=== PATIENT | female | born 1985 | race Caucasian/White ===

== ENCOUNTER 2018-05-09 13:11 | Emergency (ER) | payer OTHER, SELFPAY ==
[2018-05-09 13:38] LABS: Bilirubin Negative (Negative); Blood, Urine Large (Negative); Clarity CLOUDY (Clear); Glucose, Urine (Dipstick) Negative (Negative); Leukocyte Small (Negative); Nitrite Negative (Negative); Protein, Urine (Dipstick) Trace mg/dL (Neg-Trace); Specific Gravity, Urine 1.027 (1.002-1.036); Urobilinogen 0.2 mg/dL (0.2-1.0); pH, Urine 5.5 (5.0-9.0)
[2018-05-09 13:39] LABS: Bacteria/HPF None Seen HPF (None Seen); Hyaline Casts/LPF 4-6 HYALINE CAST LPF (0-3 Hyaline); Pathc Cast-AUWi Flag 0.76 (0-2.49); RBC/HPF GREATER THAN 50-TNTC HPF (0-3)
[2018-05-09] MEDS ORDERED: Morphine 2 MG/ML SYRINGE ONE (13:49)
[2018-05-09] MEDS ORDERED: Morphine 4 MG/ML VIAL ONE (13:49)
[2018-05-09] MEDS ORDERED: Ondansetron HCl/PF 4 MG/2 ML Vial ONE (13:49)
[2018-05-09 14:16] LABS: #Basophils 0.1 thou/uL (0.0-0.2); #Eosinphils 0.1 thou/uL (0.0-0.7); #Lymphocytes 3.1 thou/uL (1.20-3.40); #Monocytes 0.6 thou/uL (0.11-0.59); #Neutrophils 5.4 thou/uL (1.40-6.50); %Basophils 0.6 % (0.0-1.0); %Eosinophils 1.5 % (0.0-10.0); %Lymphocytes 33.7 % (21.0-51.0); %Monocytes 6.1 % (0.0-10.0); %Neutrophils 58.1 % (42.0-75.0); Hemoglobin 13.7 g/dL (12.0-16.0); Mean Corpuscular HGB CONC 32.3 g/dL (32.0-36.0); Mean Corpuscular Volume 86.6 fL (78.0-98.0); Mean Platelet Volume 8.4 fL (7.4-10.4); Platelet Count 290 thou/uL (130-400); RBC Distribution Width 12.5 % (11.5-14.5); Red Blood Cell (RBC) Count 4.91 mill/uL (4.20-5.40); White Blood Cell (WBC) Count 9.3 thou/uL (4.8-10.8)
--- NOTE | 2018-05-09 15:18 | ULT ---
PELVIC ULTRASOUND WITH DOPPLER: HISTORY: Left lower quadrant pain. Possible . Abdominal cramping. TECHNIQUE: Transabdominal, transvaginal, talbot-scale, color-flow, and spectral Doppler. FINDINGS: The uterus measures 9.4 x 5.6 x 6.6 cm without focal mass or endometrial fluid. The endometrium ariadna ures 9 mm in thickness. No intrauterine gestational sac is seen. No products of conception are iden tified in the endometrial canal. The right ovary measures 4.2 x 2.2 x 2.4 cm, and the left ovary measures 3.5 x 2.8 x 2.3 cm. Flow is demonstrated to both ovaries. No adnexal mass or free fluid in the cul-de-sac is seen. IMPRESSION: Normal examination. Correlation with serial beta hCGs and follow-up ultrasound would be helpful. POS: [facility]
[2018-05-09] MEDS ORDERED: Ketorolac Tromethamine 30 MG/ML VIAL ONE (16:53)
[2018-05-09] MEDS ORDERED: cefTRIAXone\\ROCEPHIN 500 MG VIAL ONE (18:06)
--- NOTE | 2018-05-09 18:29 | CT ---
CT ABDOMEN NONCONTRAST CT PELVIS NONCONTRAST: (urolithiasis protocol) DATE: 05/09/18 HISTORY: 32-year-old female with left flank pain and pelvic pain. COMPARISON: 10/02/10. TECHNIQUE: IV injection of iodinated contrast media: none Oral contrast media: none FINDINGS: Other than for urolithiasis, the lack of IV and oral contrast limits the evaluation. There has been cholecystectomy since the previous CT. There is a tampon within the vaginal cavity on the current study. No other interval change is detected compared to the previous CT (previous report mentions splenomega ly, but is actually no splenomegaly). There are no renal, ureteral, or bladder calculi. The appendix is normal. No ascites or pneumoperiton eum. No hydronephrosis. No small bowel dilation. No colonic diverticulitis. Within the limitations of a noncontrast scan, no abnormality identified involving bilateral kidneys, abdominal aorta, adrenals , pancreas, liver, or spleen. The urinary bladder is decompressed. IMPRESSION: 1. No urolithiasis or obstructive uropathy. 2. Status post cholecystectomy. JORGE Perez POS: [facility]
[2018-05-11 22:10] LABS: Chlamydia by PCR Not Detected (NotDetected); GC by PCR Not Detected (NotDetected)
== END 2018-05-09 18:50 | disposition home or self-care (01) ==
LOC: ERS 13:11
DX: N39.0 Urinary tract infection, site not specified (principal); D64.9 Anemia, unspecified; F17.210 Nicotine dependence, cigarettes, uncomplicated; Z79.899 Other long term (current) drug therapy
CPT/HCPCS: 74176; 76856; 81003; 81015; 84702; 85025; 86900; 86901; 87480; 87491; 87510; 87591; 87660; 96365; 96366; 96368; 96375; J0696; J1885; J2270; J2405

== ENCOUNTER 2019-05-01 20:46 | Emergency (ER) | payer OTHER ==
[2019-05-01 21:14] LABS: #Eosinphils 0.1 thou/uL (0.0-0.7); #Lymphocytes 2.1 thou/uL (1.20-3.40); #Monocytes 0.5 thou/uL (0.11-0.59); #Neutrophils 4.6 thou/uL (1.40-6.50); %Basophils 0.2 % (0.0-1.0); %Lymphocytes 29.2 % (21.0-51.0); %Monocytes 7.3 % (0.0-10.0); %Neutrophils 62.4 % (42.0-75.0); Hemoglobin 12.3 g/dL (12.0-16.0); Mean Corpuscular HGB CONC 34.3 g/dL (32.0-36.0); Mean Corpuscular Hemoglobin 29.1 pg (27.0-31.0); Mean Corpuscular Volume 84.9 fL (78.0-98.0); Mean Platelet Volume 8.2 fL (7.4-10.4); Platelet Count 232 thou/uL (130-400); RBC Distribution Width 12.3 % (11.5-14.5); Red Blood Cell (RBC) Count 4.22 mill/uL (4.20-5.40); White Blood Cell (WBC) Count 7.3 thou/uL (4.8-10.8)
[2019-05-01 21:36] LABS: ALT (SGPT) 23 U/L (8-55); AST (SGOT) 11 U/L (5-34); Albumin 3.7 g/dL (3.5-5.0); Alkaline Phosphatase 42 U/L (40-150); Anion Gap 10 mmol/L (10-20); BUN (Urea Nitrogen) 6 mg/dL (7.0-18.7); Bilirubin, Total 0.2 mg/dL (0.2-1.2); Calc. Creatinine Clearance 0 mL/min (70-130); Carbon Dioxide 21 mmol/L (22-29); Chloride 108 mmol/L (98-107); Estimated GFR-MDRD Greater than 90; Glucose 121 mg/dL (70-105); Lipase 20 U/L (8-78); Potassium 3.5 mmol/L (3.5-5.1); Protein, Total 6.7 g/dL (6.0-8.3); Sodium 135 mmol/L (136-145)
[2019-05-01 22:11] LABS: Pregnancy Test - Urine (BHCG) POSITIVE (Negative); Pregu Control Background? CLEAR/WHITE (CLR/WHITE); Pregu Control Bar Appear? YES (CONTROL BAR)
[2019-05-01 22:17] LABS: Bacteria/HPF 2+ HPF (None Seen); Mucous/LPF 2+ LPF (<2+); Squamous Epithelial 21-50 HPF (0-3)
[2019-05-01 22:31] LABS: Clarity Turbid (Clear); Leukocyte 500 Leu/uL (Negative)
[2019-05-01 22:32] LABS: Glucose, Urine (Dipstick) Negative (Negative); Nitrite Negative (Negative); Protein, Urine (Dipstick) 20 mg/dL (Neg-Trace); Urobilinogen Normal mg/dL (Less than 2)
[2019-05-01 22:33] LABS: Bilirubin Negative (Negative); Blood, Urine Negative (Negative); Specific Gravity 1.026 (1.002-1.036)
[2019-05-01] MEDS ORDERED: Ondansetron PF 4 MG/2 ML Vial ONE (23:04)
--- NOTE | 2019-05-01 23:04 | ULT ---
Limited obstetrical ultrasound: 05/01/2019 HISTORY: Abdominal pain TECHNIQUE: Multiplanar grayscale sonographic imaging of the gravid uterus obtained. FINDINGS: There is a single intrauterine gestation demonstrating a heart rate of 150 bpm. Cervical length is approximately 4.6 cm. The placenta is located anteriorly, demonstrating no evidence for previa or abruption. presentation is vertex. anatomy is not adequately assessed on this examination. biometry: Right parietal diameter 3.3 cm 16 weeks 1 day Head circumference 12.1 cm 16 weeks 0 days Abdominal circumference 10.6 cm 16 weeks 3 days Femur length 2.3 cm 16 weeks 5 days Average age based on ultrasound is 16 weeks 2 days. Estimated date of delivery is 10/14/2019 Estimated weight is 161 g +/- 24 g. Amniotic fluid volume appears qualitatively normal. IMPRESSION: Single live intrauterine gestation as detailed above.
== END 2019-05-01 23:52 | disposition home or self-care (01) ==
LOC: ERS 20:46
DX: O21.9 Vomiting of pregnancy, unspecified (principal); O23.42 Unspecified infection of urinary tract in pregnancy, second trimester; O99.012 Anemia complicating pregnancy, second trimester; Z87.891 Personal history of nicotine dependence; Z79.82 Long term (current) use of aspirin; Z79.899 Other long term (current) drug therapy; Z3A.15 15 weeks gestation of pregnancy
CPT/HCPCS: 36415; 76815; 80053; 81003; 81015; 81025; 83690; 85025; 96361; 96374; J2405

== ENCOUNTER 2019-05-26 07:38 | Outpatient (CLI) | payer OTHER ==
--- NOTE | 2019-05-26 09:20 | ULT ---
OB ULTRASOUND: HISTORY: anatomy. FINDINGS: A single live intrauterine gestation is seen with measurements corresponding to an estimated gestatio nal age of 19 weeks 4 days and an STORMY of 10/16/2019. The estimated weight measures 297 g 10 oz (92% by Hadlock criteria). measurements are as follows: BPD: 4.49 cm (19 weeks 5 days) HC: 16.58 cm (19 weeks 2 days) AC: 13.98 cm (19 weeks 3 days) FL: 3.12 cm (19 weeks 5 days) heart rate measures 143 beats per minute. The placenta is anteriorly located without evidence o f placenta previa. Amniotic fluid appears within normal limits. A three-vessel cord, cord insertion, kidneys, bladder, stomach, four chambered heart, lateral v entricles, cerebellum, lips/nose and upper and lower extremities and the portions of the spine are vi sualized without significant defects. The spine is limited in visualization due to position and maternal body habitus. IMPRESSION: Single live intrauterine at 19 weeks' 4 days' estimated gestational age and estimated date of delivery at 10/16/2019. POS: [facility]
== END 2019-05-26 07:39 | disposition home or self-care (01) ==
LOC: BICULT 07:38
PROVIDERS: ATTEND Family Medicine
DX: Z34.82 Encounter for supervision of other normal pregnancy, second trimester (principal); Z3A.19 19 weeks gestation of pregnancy
CPT/HCPCS: 76805

== ENCOUNTER 2019-07-10 10:52 | Day surgery (SDC) | payer OTHER ==
[2019-07-10 11:38] VITALS: BMI 48.0
[2019-07-10] MEDS ORDERED: hydrALAZINE 20 MG/ML VIAL SLOW IVP PRN (12:19)
--- NOTE | 2019-07-10 12:22 | PDOC.FPROB ---
FMR OB H&P: HPI - History of Present Illness Chief Complaint: decreased movement Indentification: 34 y/o @ 24.5 WGA History of Present Illness: Pt presents with decreased movement. She reports no movement since 9pm last night. She has a h/o multiple IUFD's and SAB's. She reports she was diagnosed this with Factor V Leiden, but she is unsure exactly. A finance administrator placed her on lovenox for this and this is her first taking lovenox. She was also placed on progesterone due to a labor where they had found no heartbeat at the onset of labor. She denies any vaginal bleeding, d/c, LOF, abdominal cramping. Primary Care Physician: Dr. Latonia Driver FMR OB H&P: Current - Care : 11 Para: [id number] Gestational age: 24.5 FMR OB H&P: History - Past Medical History PMH: Anemia - OB History OB History: 2 term 's living, HTN d/o of during with her son 1 term IUFD at 38 weeks 3 IUFD at 36, 28, 22 weeks 4 1T SAB's - Surgical History Sx History: Multiple D&C's Ovarian cyst removal Fibroidectomy Endometrial ablation for abnormal vaginal bleeding cholecystectomy - Social History Social History: Denies tobacco, EtOH, or drug use - Family History Family History: Ovarian cancer, other types of cancer FMR OB H&P: Medications - Current Home Medications: Medication Instructions Recorded Confirmed Type Tranexamic Acid [Lysteda] 1,300 mg PO TID 07/15/16 07/10/19 History Aspirin [Aspir-Low] 81 mg pe PO DAILY 07/10/19 07/10/19 History Vit,Calc78/Iron/Folic 1 tab PO DAILY 07/10/19 07/10/19 History [Prenatabs FA Tablet] medroxyPROGESTERone Acetate 10 mg PO BID 07/10/19 07/10/19 History [Provera] Allergies/Adverse Reactions: Allergies Allergy/AdvReac Type Severity Reaction Status Date / Time No Known Allergies Allergy Verified 07/10/19 11:24 FMR OB H&P: ROS - Review of Systems General: denies: fever/chills, fatigue Eyes: denies: eye pain, double vision ENT: denies: nasal congestion, sore throat Cardiovascular: denies: chest pain, edema Respiratory: denies: cough, shortness of breath Gastrointestinal: denies: abdominal pain, nausea Genitourinary (Female): denies: dysuria, vaginal discharge, vaginal bleeding, contractions Musculoskeletal: denies: pain, swelling Neurologic: denies: numbness, weakness Integumentary: denies: itching, rash FMR OB H&P: Vital Signs - Maternal Vital signs: BP 118/70, HR 98, RR 16 - Heart Tones Baseline: 125 Variability: moderate Acceleration: absent Deceleration: absent FMR OB H&P: Physical Exam - Physical Exam General: NAD, awake, alert and oriented HEENT: normocephalic and atraumatic, EOMI, MMM, conjunctiva clear, grossly normal vision, grossly normal hearing, normal nasal mucosa, oropharynx clear Neck: supple, no LAD Heart: pulses present, no edema General: no respiratory distress Abdomen: soft, gravid, non-tender Musculoskeletal: normal gait and station, pulses present Neurological: no clonus, no focal deficit Skin: good tugor, capillary refill <2 seconds Psychiatric: intact recent and remote memory, good judgement and insight FMR OB H&P: A/P - Problem List (1) Decreased movement affecting , antepartum Current Visit: Yes Status: Acute Code(s): O36.8190 - DECREASED MOVEMENTS, UNSP TRIMESTER, UNSP Assessment and Plan: FHT noted at 125 Pt reports increased movement since arrival here Has f/u appt with Dr. Latonia Driver on Friday Continue good PO hydration (2) H/O intrauterine , currently Current Visit: Yes Status: Acute Code(s): O09.299 - SUPRVSN OF PREG W POOR REPRODCTV OR OBSTET HISTORY, UNSP TRI Assessment and Plan: Pt with multiple IUFD and SAB, currently on lovenox for prevention and aspirin. Unsure if pt has dx of a thrombophilia d/o, but recommended f/u with PCP regarding this Disposition: d/c home with f/u with Dr. Latonia Driver Discussion: Date/Time: 07/10/19 1219 This H&P was discussed with Dr. Downs who agrees with the above documentation and plan. Signature: Blanca Lentz MD, PGY-3
--- NOTE | 2019-07-10 13:11 | HP ---
TIME OF EVALUATION: 12:15 to 12:30 p.m. This is a patient of Dr. Latonia Driver. This patient was assessed first by Dr. Blanca Lentz, who is our resident on-call and this is my faculty attestation. I have seen the patient at bedside. CHIEF COMPLAINT: Decreased movement at 24 weeks and 5 days. HISTORY OF PRESENT ILLNESS: This is a 34-year-old 11, para 3-3-4-2 with 3 prior demises, who is on Lovenox for unclear indication. She is also on vaginal progesterone and is on low-dose aspirin due to prior PIH history (no chronic hypertension). She states that she had decreased movement this morning, but since arrival now feels the baby move. She has no vaginal bleeding, contractions, or leakage of fluid. She denies fever or recent trauma. REVIEW OF SYSTEMS: Complete review of systems was done and is otherwise negative unless specified in the HPI. PAST MEDICAL HISTORY: No history of DVT or diabetes. No history of chronic hypertension. ALLERGIES: NONE. PAST SURGICAL HISTORY: Noncontributory. OB HISTORY: She has had 4 term and 3 (one was spontaneous labor at 26 weeks, but this was also with a demise, was not clear if the demise came first and that triggered labor or feels spontaneous labor). She has four spontaneous losses and she has two living children. MEDICATIONS: Include; 1. Lovenox for prophylaxis. 2. Vaginal progesterone. 3. Low-dose aspirin. INTERVENTIONS: heart tones were checked with the Doppler and also were placed on the monitor for about 2 to 3 minutes and they were normal in the 130s. There was no evidence of bradycardia. Nonstress test was not performed as she is under 28 weeks. ASSESSMENT: This is a 34-year-old 11, para 3-3-4-2, at 24 weeks and 5 days with history demises in the past, who had some decreased movement, but it is now resolved. PLAN: 1. I have seen and evaluated the patient. 2. No acute needs at this time. 3. She has a followup with her provider on Friday (Dr. Latonia Driver) and she will discuss further plan of care with her. It is unclear by the patient's history whether she has factor V or not. She stated that she is thinking that the Lovenox was done as prophylaxis in general due to her poor obstetrical history. 4. No evidence of labor at this time. 5. No evidence of leakage of fluid based on overall gross examination or by history. Job ID: [id number]
== END 2019-07-10 12:55 | disposition home or self-care (01) ==
LOC: L&D/OP 10:52
PROVIDERS: ATTEND Family Medicine
DX: O36.8120 Decreased fetal movements, second trimester, not applicable or unspecified (principal); O09.292 Supervision of pregnancy with other poor reproductive or obstetric history, second trimester; O09.212 Supervision of pregnancy with history of pre-term labor, second trimester; Z3A.24 24 weeks gestation of pregnancy; Z79.82 Long term (current) use of aspirin; Z79.899 Other long term (current) drug therapy

== ENCOUNTER 2019-09-02 14:47 | Outpatient (CLI) | payer OTHER ==
--- NOTE | 2019-09-02 17:15 | ULT ---
ULTRASOUND OBSTETRICAL COMPLETE: 09/02/19 HISTORY: 34-year-old female with gestational diabetes. FINDINGS: number: Abdul. lie: Cephalic. Maternal cervix: Obscured. Placenta: Anterior. No placenta previa. Amniotic fluid volume: TI 11.5 cm. heart rate: 132 bpm anatomy not evaluated. biometry: Head circumference (HC): 31.8 cm 35w 6d Biparietal diameter (BPD): 8.7 cm 35w 0d Abdominal circumference (AC): 34.6 cm 38w 3d Femur length (FL): 6.9 cm 35w 3d Average ultrasound age (AUA): 36w 1d Estimated date of delivery (STORMY): 09/29/2019 Last menstrual period (LMP): 01/16/2019 Gestational age by LMP: 31w 5d Estimated weight (EFW): 3109 g +/- 460 g (6 lb. 14 oz. +/- 16 oz.) The STORMY established on previous ultrasound of 05/01/19, was 10/14/2019. IMPRESSION: 1. Live third trimester intrauterine gestation. 2. Estimated gestational age of 36 weeks, 1 day on this ultrasound, is discrepant with that establish ed by the prior ultrasound and by the LMP: Evidence for macrosomia. 3. Cephalic lie. JORGE Perez POS: [facility]
== END 2019-09-02 14:48 | disposition home or self-care (01) ==
LOC: ULT 14:47
PROVIDERS: ATTEND Family Medicine
DX: O24.419 Gestational diabetes mellitus in pregnancy, unspecified control (principal); Z3A.36 36 weeks gestation of pregnancy
CPT/HCPCS: 76815

== ENCOUNTER 2019-09-06 16:04 | Day surgery (SDC) | payer OTHER ==
[2019-09-06 16:34] VITALS: BMI 48.9
[2019-09-06] MEDS ORDERED: hydrALAZINE 20 MG/ML VIAL SLOW IVP PRN (16:36)
[2019-09-06 17:10] LABS: Hemoglobin A1c 5.8 % (4.0-6.0)
--- NOTE | 2019-09-06 18:51 | ULT ---
BIOPHYSICAL PROFILE: History: Decreased movement, obesity, gestational diabetes. FINDINGS: Real-time imaging of the pelvis shows single viable intrauterine . heart rate is 160 b eats/minute. Fetus is in a cephalic presentation. The placenta is fundal in location. Visually the am niotic fluid appears borderline low but the amniotic fluid index is within normal limits at 15.2. The re is a larger pocket of fluid measuring 8 cm. biophysical profile score: tone 2 breathing 2 movements 2 Amniotic fluid 2 IMPRESSION: biophysical profile score 8/8. POS: [facility]
--- NOTE | 2019-09-06 23:57 | PRG ---
DATE OF SERVICE: 09/06/2019 PRIMARY OB: Latonia Driver MD CHIEF COMPLAINT: Decreased movement. HISTORY OF PRESENT ILLNESS: The patient is a 34-year-old, G8, P2 female. Actually, the patient reports G11, P2 female with an intrauterine at 33 weeks and 2 days, who was sent from the office for testing due to gestational diabetes on medication. Due to patient habitus, her doctor was unable to perform an NST in the office. The patient also reports today that she has not felt her baby move, like she used to. She reports that she is on Lovenox 80 mg daily for a suspected coagulopathy that she was unable to describe. She denies any headache, chest pain, shortness of breath. She has had some nausea. Denies vomiting. Has had diarrhea for the last couple of days. Denies constipation, denies any new rashes, hip problems, knee problems, muscle weakness. Denies vaginal bleeding or leakage of fluid. PAST MEDICAL HISTORY: The patient has had 2 intrauterine demises one at 36 weeks and one around her 22 week of gestation. She has had multiple 1st trimester losses. Past medical history also includes depression in 2007, PCOS diagnosed in 2007, migraine headaches without aura, gestational diabetes hypertension associated with her 1st . Suspect of some coagulopathy as the patient is on Lovenox. ALLERGIES: NO KNOWN DRUG ALLERGIES. SOCIAL HISTORY: Denies drug, alcohol, tobacco use. OBSTETRIC HISTORY: With this , the patient has a positive antibody screen for the Root-A antibody and is due for titers today. REVIEW OF SYSTEMS: Per HPI. PHYSICAL EXAMINATION: VITAL SIGNS: Blood pressure 130/75, pulse of 120, saturating 97% to 99% on room air. GENERAL: She appears to be in no acute distress. She is alert, oriented, cooperative, and pleasant to interact with. HEAD: Normocephalic, atraumatic. LUNGS: Clear to auscultation bilaterally. HEART: Rate is tachycardic. ABDOMEN: Gravid and soft, nontender, morbidly obese. EXTREMITIES: Nontender, nonedematous. BPP is 8/8 with TI of 15, hemoglobin A1c is 5.8. Her antibody titer for the anti Root A is 32, up from 8 last month. ASSESSMENT AND PLAN: The patient is a 34-year-old female, multiparous female with a history of unknown to myself, suspected coagulopathy, on Lovenox here for testing for gestational diabetes. Her biophysical profile is 8/8. A1c is 5.8. Her antibody titer, however, is increased from 8 to 32. I have updated her primary OB, Dr. Latonia Driver with these new findings. The patient was discharged home with instructions to follow up with Dr. Driver as scheduled, which she has early next week. Job ID: [id number]
== END 2019-09-06 17:56 | disposition home or self-care (01) ==
LOC: L&D/OP 16:04
PROVIDERS: ATTEND Family Medicine
DX: O36.8130 Decreased fetal movements, third trimester, not applicable or unspecified (principal); O24.415 Gestational diabetes mellitus in pregnancy, controlled by oral hypoglycemic drugs; O99.213 Obesity complicating pregnancy, third trimester; E66.9 Obesity, unspecified; O09.293 Supervision of pregnancy with other poor reproductive or obstetric history, third trimester; Z3A.33 33 weeks gestation of pregnancy; Z79.01 Long term (current) use of anticoagulants; Z79.82 Long term (current) use of aspirin; Z79.84 Long term (current) use of oral hypoglycemic drugs
CPT/HCPCS: 36415; 76819; 83036; 86886; 99282

== ENCOUNTER 2019-09-13 11:46 | Day surgery (SDC) | payer OTHER ==
[2019-09-13 12:17] VITALS: BMI 48.9
[2019-09-13] MEDS ORDERED: hydrALAZINE 20 MG/ML VIAL SLOW IVP PRN (12:31)
--- NOTE | 2019-09-13 12:36 | PDOC.LDHP ---
Labor and Delivery H&P Chief complaint: other (NST) HPI: 34 y/o at 34w2d, pt of Dr. Latonia Driver, presents for scheduled NST. Denies VB, LOF, ctx, or decreased FM. ROS neg for HEENT, cv, pulm, gi, gu, neuro, psych, skin, musculoskeletal or constitutional symptoms other than mentioned above. OB History Details: 8 SABs 2 SVDs Current complications: gestational diabetes, gestational hypertension Past Medical History: Obesity, Factor 9 Current medications: pre-lisandro vitamins, iron, other (lovenox, metformin, asa, folate) Previous surgical history: cholecystectomy, other (tonsillectomy) Allergies/Adverse Reactions: Allergies Allergy/AdvReac Type Severity Reaction Status Date / Time No Known Allergies Allergy Verified 09/13/19 12:13 Social history: none - Physical Exam Vital signs reviewed and normal: yes General: NAD, resting Lungs: nonlabored breathing Abdomen: gravid Extremeties: no edema FHT: category 1 (120s, mod variability, + accels, no decels) [place] contractions every: None - Assessment 34 y/o at 34w2d here for scheduled NST for gestational diabetes. No complaints. status reassuring with reactive NST. - Plan -: D/c home with precautions. Scheduled for follow up and repeat NST next Friday.
== END 2019-09-13 12:40 | disposition home or self-care (01) ==
LOC: L&D/OP 11:46
PROVIDERS: ATTEND Family Medicine
DX: O24.415 Gestational diabetes mellitus in pregnancy, controlled by oral hypoglycemic drugs (principal); O13.3 Gestational [pregnancy-induced] hypertension without significant proteinuria, third trimester; O99.213 Obesity complicating pregnancy, third trimester; E66.9 Obesity, unspecified; Z3A.34 34 weeks gestation of pregnancy; Z79.01 Long term (current) use of anticoagulants; Z79.82 Long term (current) use of aspirin; Z79.84 Long term (current) use of oral hypoglycemic drugs; Z79.899 Other long term (current) drug therapy; Z90.49 Acquired absence of other specified parts of digestive tract
CPT/HCPCS: 36415; 59025; 80053; 85025; 86886; 99282

== ENCOUNTER 2019-09-20 15:24 | Day surgery (SDC) | payer OTHER ==
[2019-09-20] MEDS ORDERED: hydrALAZINE 20 MG/ML VIAL SLOW IVP PRN (15:40)
[2019-09-20 15:57] VITALS: BP 127/81; TEMP 98.3
[2019-09-20 16:05] VITALS: BMI 49.8
--- NOTE | 2019-09-20 17:14 | ULT ---
EXAM: US Biophysical Profile PROVIDED CLINICAL HISTORY: Isoimmunization testing. Follow-up evaluation COMPARISON: 09/06/2019. FINDINGS: Again noted is evidence of a single intrauterine gestation in cephalic presentation. Cardiac Doppler demonstrates heart tones with a heart rate of 158 bpm. The placenta is located anteriorly. Hypoechoic area is seen centrally within the placenta which may represent a venous rasheed o r fibrin deposition. Based on provided images, there does not appear to be evidence of placenta previa. The amniotic fluid index is calculated at 11.6 cm. Amniotic fluid index on the prior study wa s calculated at 15.2 cm. The cervix is obscured due to shadowing from head and not evaluated on this exam. A score of 2 was obtained each for tone, movements, and amniotic fluid volume. However, a score of 0 was obtained for breathing. IMPRESSION: 1. biophysical profile score of 6 out of 8. A score 0 was obtained for breathing. 2. Single intrauterine gestation in cephalic presentation with heart tones documented. 3. Above findings were discussed with [place] labor delivery nurse, on 09/20/2019 at 1711 hours
[2019-09-20 17:22] LABS: #Eosinphils 0.1 thou/uL (0.0-0.7); #Lymphocytes 2.2 thou/uL (1.20-3.40); #Monocytes 0.9 thou/uL (0.11-0.59); #Neutrophils 7.7 thou/uL (1.40-6.50); %Basophils 0.4 % (0.0-1.0); %Eosinophils 0.5 % (0.0-10.0); %Lymphocytes 20.2 % (21.0-51.0); %Monocytes 8.6 % (0.0-10.0); %Neutrophils 70.3 % (42.0-75.0); Hemoglobin 11.9 g/dL (12.0-16.0); Mean Corpuscular HGB CONC 34.1 g/dL (32.0-36.0); Mean Corpuscular Hemoglobin 27.6 pg (27.0-31.0); Mean Corpuscular Volume 81.1 fL (78.0-98.0); Mean Platelet Volume 9.1 fL (7.4-10.4); Platelet Count 278 thou/uL (130-400); RBC Distribution Width 13.5 % (11.5-14.5); Red Blood Cell (RBC) Count 4.32 mill/uL (4.20-5.40); White Blood Cell (WBC) Count 10.9 thou/uL (4.8-10.8)
[2019-09-20 17:46] LABS: ALT (SGPT) 43 U/L (8-55); AST (SGOT) 33 U/L (5-34); Albumin 3.7 g/dL (3.5-5.0); Alkaline Phosphatase 169 U/L (40-110); Anion Gap 10 mmol/L (10-20); BUN (Urea Nitrogen) 8 mg/dL (7.0-18.7); Bilirubin, Total 0.3 mg/dL (0.2-1.2); Calc. Creatinine Clearance 279 mL/min (70-130); Calcium 9.1 mg/dL (7.8-10.44); Carbon Dioxide 24 mmol/L (22-29); Chloride 106 mmol/L (98-107); Estimated GFR-MDRD Greater than 90; Globulin 3.9 g/dL (2.4-3.5); Glucose 78 mg/dL (70-105); Protein, Total 7.6 g/dL (6.0-8.3); Sodium 136 mmol/L (136-145); Uric Acid 3.1 mg/dL (2.6-6.0)
[2019-09-20] MEDS ORDERED: Fioricet 325/50/40 mg Tablet PO PRN (18:05)
[2019-09-20 18:29] LABS: Creatinine, Urine 192.6 mg/dL (47-110)
[2019-09-20] MEDS ORDERED: Betamet Acet/Betamet Na Ph 30 MG/5 ML VIAL IM SCH (18:30)
--- NOTE | 2019-09-20 21:17 | PRG ---
DATE OF SERVICE: 09/20/2019 PRIMARY OB: Dr. Latonia Driver. 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 The patient is presenting to Labor and Delivery for routine testing, BPP, and NST per [facility] recommendations. On arrival, the patient reports that she has a headache that she has had today. The patient reports a history of migraines, but denies this headache as anything like her migraines. She also reports uncontrollable itching of her hands and her feet. This has been going on for few days now and forgot to mention it to her doctor today. She denies any shortness of breath or any abdominal pain. She denies any uterine contractions, leakage of fluid, or vaginal bleeding. PAST MEDICAL HISTORY: Depression, PCOS, and migraine headaches. She has a history of uterine ablation. Factor IX and obesity. PAST SURGICAL HISTORY: Cholecystectomy. Tonsils and adenoidectomy. Removal of uterine polyp, ovarian cyst, and scar tissue broken up. D and C and endometrial ablation. ALLERGIES: NO KNOWN DRUG ALLERGIES. MEDICATIONS: 1. Lovenox. 2. Iron. 3. vitamins. 4. Metformin. 5. Aspirin. 6. Folate. SOCIAL HISTORY: Denies drug, alcohol, or tobacco use. OB LABS: Hepatitis B surface antigen nonreactive. HIV nonreactive. Rubella immune. RPR nonreactive. Blood type is O positive. Antibody screen is positive for anti-Root A. REVIEW OF SYSTEMS: Per HPI. PHYSICAL EXAMINATION: VITAL SIGNS: Blood pressure 120s over 70s, had a period of time with 140s over 80 to 90; however, on further inspection, the blood pressure technique was wrong with the blood pressure cuff on the wrist and the wrist resting down well below the heart. Correction of the technique repeated normal range of blood pressures. Heart rate in the 100 and saturating 97% on room air. GENERAL: She appears to be in no acute distress. She is alert, oriented, cooperative, and pleasant to interact with. HEAD: Normocephalic and atraumatic. LUNGS: Clear to auscultation bilaterally. HEART: Has a regular rate and rhythm. ABDOMEN: Gravid and soft. EXTREMITIES: Nontender and nonedematous. DTRs are not elicitable. No clonus on her feet. LABORATORY DATA: Lab work shows white count of 10.9, hemoglobin 11.9, hematocrit 35.0, and platelets of 270,000. AST of 33, ALT of 43, uric acid of 3.1, potassium of 4.0, and sodium of 136. Urine with protein to creatinine ratio of 0.26. DIAGNOSTIC DATA: heart tracing shows a baseline in the 120s with moderate long-term variability, positive 15 x 15 accelerations. BPP and tocometer showing some irregular contractions, not felt by the patient. BPP is 6/8, two off for breathing. The patient has been given a dose of Fioricet and reports her headache has improved but not resolved. ASSESSMENT AND PLAN: The patient is a 34-year-old multiparous female with multiple comorbidities including anti-Root A antibody, isoimmunization, gestational diabetes, morbid obesity, thrombophilia with factor IX abnormalities, now with pruritus and headache. Workup for PIH demonstrated some intermediate findings on proteinuria, however, what were believed to be elevated blood pressures, I believe now were only errors in technique, has resolution of the perceived problem resolved her blood pressures. The patient is being discharged to home. She has been given a dose of steroids today due to her planned early delivery next week at 36 weeks per [facility] recommendations. Her pruritis, palmar and plantar pruritus, is significant. The patient has been counseled taking Benadryl at this time to see if that will help. We are getting bile acids tomorrow morning, which may or may not alter her time of induction. If her acids are over 100, it would warrant induction of labor as soon as these findings were discovered. In addition, her BPP was less than ideal with two off for breathing and is scheduled to come back tomorrow for a repeat. NST is reactive. Findings have been communicated with her primary OB, Dr. Latonia Driver. She is attempting to put in a schedule for her induction and will be contacting the patient. Job ID: [id number]
== END 2019-09-20 19:20 | disposition home or self-care (01) ==
LOC: L&D/OP 15:24
PROVIDERS: ATTEND Family Medicine
DX: O36.0130 Maternal care for anti-D [Rh] antibodies, third trimester, not applicable or unspecified (principal); O24.419 Gestational diabetes mellitus in pregnancy, unspecified control; O99.213 Obesity complicating pregnancy, third trimester; E66.01 Morbid (severe) obesity due to excess calories; O99.113 Other diseases of the blood and blood-forming organs and certain disorders involving the immune mechanism complicating pregnancy, third trimester; D68.59 Other primary thrombophilia; Z3A.49 Greater than 42 weeks gestation of pregnancy
CPT/HCPCS: 36415; 59025; 76819; 80053; 81003; 82570; 84156; 84550; 85025; 87081; 96372; 99285; J0702

== ENCOUNTER 2019-09-21 17:03 | Inpatient (IN) | payer OTHER ==
[~2019-09-21 17:03] MED LIST: Bupivacaine 0.25% 10 ML VIAL ONE
[2019-09-21] MEDS ORDERED: hydrALAZINE 20 MG/ML VIAL SLOW IVP PRN ×2 (17:28→19:36)
[2019-09-21] MEDS ORDERED: Betamet Acet/Betamet Na Ph 30 MG/5 ML VIAL IM SCH (17:30)
[2019-09-21 17:47] VITALS: BMI 50.9
--- NOTE | 2019-09-21 18:42 | ULT ---
LIMITED OBSTETRICAL ULTRASOUND FOR BIOPHYSICAL PROFILE INDICATION: Isoimmunization TECHNIQUE: Grayscale, M-mode Doppler, color Doppler and spectral Doppler images were obtained. Biophy sical profile was submitted by the registered veterinary technician. Imaging is focused on the clinical indication. COMPARISON: Prior exam dated. 2019 GESTATION: Number of gestations: Single. Presentation: Cephalic. heart rate: 141 bpm. Placental location: Anterior Previa: No evidence for previa. Cervical length: Not measured TI: 7.4 cm. Biophysical profile: tone: 2 out of 2. breathin out of 2 movements: 0 out of 2 Amniotic fluid level: 2 out of 2 IMPRESSION: 1. Biophysical profile of 4 out of 8. Verbal report was given to Dr. Perkins by the registered veterinary technician at the time of this exam.
[2019-09-21] MEDS ORDERED: Promethazine HCl 25 MG/ML VIAL IM PRN (19:36)
[2019-09-21] MEDS ORDERED: Acetaminophen 500 MG TAB PO PRN (19:36)
[2019-09-21] MEDS ORDERED: NS / Oxytocin 40 units/1000ml 1,000 ML IV PRN (19:36)
[2019-09-21] MEDS ORDERED: Ondansetron PF 4 MG/2 ML Vial IVP PRN (19:36)
[2019-09-21] MEDS ORDERED: Ibuprofen 800 MG TAB PO PRN (19:36)
[2019-09-21] MEDS ORDERED: Misoprostol 200 MCG TAB PR PRN (19:36)
[2019-09-21] MEDS ORDERED: Lidocaine 1% (PF) 30 ML VIAL SC PRN (19:36)
[2019-09-21] MEDS ORDERED: HYDROcodone/Acetaminophen 5/325 mg Tablet PO PRN ×2 (19:36)
[2019-09-21] MEDS ORDERED: Butorphanol Tartrate 1 MG/ML VIAL SLOW IVP PRN (19:36)
[2019-09-21] MEDS ORDERED: Carboprost 250 MCG/ML AMP IM PRN (19:36)
[2019-09-21] MEDS ORDERED: Methylergonovine 0.2 MG/ML VIAL IM PRN (19:36)
[2019-09-21] MEDS ORDERED: Diphenoxylate HCl/Atropine Tablet PO PRN ×2 (19:36)
[2019-09-21] MEDS: Lactated Ringer's 1,000 ML IV SCH (21:05)
[2019-09-21 22:00] LABS: Hemoglobin 11.5 g/dL (12.0-16.0); Mean Corpuscular HGB CONC 33.3 g/dL (32.0-36.0); Mean Corpuscular Hemoglobin 27.4 pg (27.0-31.0); Mean Platelet Volume 9.5 fL (7.4-10.4); Platelet Count 269 thou/uL (130-400); RBC Distribution Width 13.7 % (11.5-14.5); Red Blood Cell (RBC) Count 4.19 mill/uL (4.20-5.40); White Blood Cell (WBC) Count 11.8 thou/uL (4.8-10.8)
[2019-09-21 22:41] LABS: HBSAg Index 0.16 S/CO (0-0.99); Hep B Surf Ag Non-Reactive S/CO (NonReactive); Syphilis Antibody Nonreactive (Nonreactive); Syphilis Antibody Index 0.05 S/CO (<1.00 Non-Reactive)
[2019-09-22] MEDS: Lactated Ringer's 1,000 ML IV SCH ×2 (02:00→09:18)
[2019-09-22] MEDS ORDERED: NS w/ Oxytocin 10 units 500 ML IV SCH (06:00)
[2019-09-22] MEDS ORDERED: Penicillin G Potassium 5 MILL.UNITS VIAL ONE (07:45)
[2019-09-22] MEDS ORDERED: Fentanyl 4 mcg/Bup 0.1% Cadd 100 ML ONE (08:07)
[2019-09-22] MEDS ORDERED: diphenhydrAMINE 50 MG/ML VIAL IVP PRN (08:42)
[2019-09-22] MEDS ORDERED: Naloxone HCl 0.4 mg/ml Vial IVP PRN ×2 (08:42)
[2019-09-22] MEDS ORDERED: Ondansetron PF 4 MG/2 ML Vial IVP PRN ×2 (08:42→12:22)
[2019-09-22] MEDS ORDERED: Acetaminophen 325 MG TAB PO PRN (08:42)
[2019-09-22] MEDS ORDERED: Lactated Ringer's 500 ML IV PRN (08:42)
[2019-09-22] MEDS ORDERED: Promethazine HCl 25 MG/ML VIAL IM PRN (08:42)
[2019-09-22] MEDS ORDERED: Fentanyl 4 mcg/Bupivacaine 0.1% Cassette 100 ML EPIDURAL SCH (08:45)
[2019-09-22] MEDS ORDERED: Communication Order-Pharmacy FS SCH (08:45)
[2019-09-22] MEDS ORDERED: Pen G 2.5 MILL.UNITS/50 ML BAG IVPB SCH (09:00)
[2019-09-22] MEDS ORDERED: HYDROcodone/Acetaminophen 5/325 mg Tablet PO PRN (12:22)
[2019-09-22] MEDS ORDERED: Lanolin Ointment 7 GM TUBE TOP PRN (12:22)
[2019-09-22] MEDS ORDERED: Milk Of Magnesia 30 ML UDCUP PO PRN (12:22)
[2019-09-22] MEDS ORDERED: traMADol HCl 50 MG TAB PO PRN (12:22)
[2019-09-22] MEDS ORDERED: Acetaminophen/Codeine 30-300mg Tablet PO PRN (12:22)
[2019-09-22] MEDS ORDERED: NS / Oxytocin 40 units/1000ml 1,000 ML IV SCH (12:22)
[2019-09-22] MEDS ORDERED: diphenhydrAMINE 25 MG CAP PO PRN (12:22)
[2019-09-22] MEDS ORDERED: Bisacodyl 10 MG SUPP PR PRN (12:22)
[2019-09-22] MEDS ORDERED: hydrALAZINE 20 MG/ML VIAL SLOW IVP PRN (12:22)
[2019-09-22] MEDS ORDERED: Preparation H Ointment 28 GM TUBE PR PRN (12:22)
[2019-09-22] MEDS ORDERED: Benzocaine-Menthol 82.5 ML CAN TOP PRN (12:22)
[2019-09-22] MEDS: Ibuprofen 800 MG TAB PO SCH ×2 (14:27→21:58)
[2019-09-22] MEDS: Ferrous Sulfate 325 MG TAB PO SCH (17:56)
[2019-09-22] MEDS: Docusate Calcium (SURFAK) 240 MG CAP PO SCH (21:58)
[2019-09-23] MEDS: Ibuprofen 800 MG TAB PO SCH ×3 (05:01→21:37)
[2019-09-23] MEDS: Ferrous Sulfate 325 MG TAB PO SCH ×2 (09:27→16:31)
[2019-09-23] MEDS: Docusate Calcium (SURFAK) 240 MG CAP PO SCH ×2 (09:35→21:37)
[2019-09-23] MEDS: Enoxaparin Sodium 40 MG/0.4 ML SYRINGE SC SCH (09:35)
[2019-09-23] MEDS: Prenatal Vitamin 1 TAB PO SCH (09:35)
[2019-09-24] MEDS: Ibuprofen 800 MG TAB PO SCH ×2 (04:59→14:11)
[2019-09-24 08:27] VITALS: BP 91/52; TEMP 98.9
[2019-09-24] MEDS: Ferrous Sulfate 325 MG TAB PO SCH (08:29)
[2019-09-24] MEDS: Docusate Calcium (SURFAK) 240 MG CAP PO SCH (08:34)
[2019-09-24] MEDS: Prenatal Vitamin 1 TAB PO SCH (08:34)
[2019-09-24] MEDS: Enoxaparin Sodium 40 MG/0.4 ML SYRINGE SC SCH (08:35)
== END 2019-09-24 15:07 | disposition home or self-care (01) | DRG 807 ==
LOC: L&D/OP 17:03 → L&D 21:42 → 3SW 09-22 14:20
PROVIDERS: ADMIT Family Medicine; ATTEND Family Medicine
PROC: 10907ZC Drainage of Amniotic Fluid, Therapeutic from Products of Conception, Via Natural or Artificial Opening (ICD-10-PCS; principal; 2019-09-22)
PROC: 10E0XZZ Delivery of Products of Conception, External Approach (ICD-10-PCS; 2019-09-22)
PROC: 3E033VJ Introduction of Other Hormone into Peripheral Vein, Percutaneous Approach (ICD-10-PCS; 2019-09-22)
DX: O24.429 Gestational diabetes mellitus in childbirth, unspecified control (principal); Z37.0 Single live birth; O36.63X0 Maternal care for excessive fetal growth, third trimester, not applicable or unspecified; Z3A.35 35 weeks gestation of pregnancy; O76 Abnormality in fetal heart rate and rhythm complicating labor and delivery; O99.344 Other mental disorders complicating childbirth; O99.284 Endocrine, nutritional and metabolic diseases complicating childbirth; E28.2 Polycystic ovarian syndrome; O99.353 Diseases of the nervous system complicating pregnancy, third trimester
CPT/HCPCS: 36415; 51702; 59025; 76819; 80053; 81003; 82570; 84156; 84550; 85025; 85027; 86780; 86850; 86870; 86900; 86901; 86922; 87077; 87081; 87340; 96372; 99285; J0702; J1650; J2540; J2590; S0020

== ENCOUNTER 2024-02-20 08:55 | Outpatient (CLI) | payer OTHER | END 2024-02-20 08:56 | disposition home or self-care (01) | LOC: DTY/OP 08:55 | PROVIDERS: ATTEND Family Medicine | DX: E66.01 Morbid (severe) obesity due to excess calories (principal) | CPT/HCPCS: 97802 ==